=== PATIENT | female | born 1975 | race Caucasian/White ===

== ENCOUNTER 2017-12-09 09:37 | Emergency (ER) | payer BC, OTHER ==
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
[2017-12-09 10:04] VITALS: BP 132/97
--- NOTE | 2017-12-09 10:24 | UC ---
Respiratory Complaint HPI - HPI Summary HPI Summary: 42F presents with sinus congestion, worsening cough, and fever for past couple days. 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 She states that this started Wednesday and has gotten worst. She got her flu shot. She has been taking dayquil which has been helping. She denies any chest pain or SOB. She does not smoke. - History of Current Complaint Chief Complaint: UCGeneralIllness Stated Complaint: UPPER RESPIRATORY Time Seen by Provider: 12/09/17 10:15 Hx Last Menstrual Period: 2 months ago r/t pcos Pain Intensity: 0 - Allergies/Home Medications Allergies/Adverse Reactions: Allergies Allergy/AdvReac Type Severity Reaction Status Date / Time Codeine Allergy Severe shakey Verified 12/09/17 10:04 difficulty breathing Morphine Allergy Severe difficulty Verified 12/09/17 10:04 breathing, shaking, nausea, vomiting Propoxyphene Allergy Severe GI Verified 12/09/17 10:04 [From MarceloRobert] symptoms, difficulty breathing, shaking Home Medications: Home Medications Cyclobenzaprine TAB* [Flexeril 10 MG TAB*] 12/09/17 [History] Gabapentin CAP(*) [Neurontin 300 CAP(*)] 300 mg PO TID 12/09/17 [History Confirmed 12/09/17] Tramadol 50 MG # 6 TAB PREPAK 12/09/17 [History] PMH/Surg Hx/FS Hx/Imm Hx Endocrine History: Other Other Endocrine History: PCOS Respiratory History: Other Other Respiratory History: no asthma - Surgical History Surgical History: Yes Surgery Procedure, Year, and Place: gallbladder removed. - Family History Known Family History: Negative: Respiratory Disease - Social History Alcohol Use: Rare Substance Use Type: None Smoking Status (MU): Never Smoked Tobacco - Immunization History Most Recent Influenza Vaccination: Fall 2013 Most Recent Tetanus Shot: unknown Review of Systems Constitutional: Fever ENT: Nasal Discharge Respiratory: Cough Cardiovascular: Negative All Other Systems Reviewed And Are Negative: Yes Physical Exam Triage Information Reviewed: Yes Appearance: Well-Appearing Vital Signs: Initial Vital Signs Temp 98.1 F 12/09/17 09:59 Pulse 94 12/09/17 09:59 Resp 18 12/09/17 09:59 BP 132/97 12/09/17 09:59 Pulse Ox 100 12/09/17 09:59 Vital Signs Reviewed: Yes Eye Exam: Normal ENT: Positive: Pharynx normal, Nasal drainage, TMs normal Neck: Positive: Supple, Nontender, No Lymphadenopathy Respiratory: Positive: Lungs clear, Normal breath sounds, Other: - neg egophony Cardiovascular: Positive: RRR Abdomen Description: Positive: Nontender, Soft Bowel Sounds: Positive: Present Musculoskeletal Exam: Normal Neurological Exam: Normal Psychological Exam: Normal Skin Exam: Normal UC Diagnostic Evaluation - Laboratory O2 Sat by Pulse Oximetry: 100 Respiratory Course/Dx - Course Course Of Treatment: 42F presents with sinus congestion, worsening cough, and fever for past couple days. 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 She states that this started Wednesday and has gotten worst. She got her flu shot. She has been taking dayquil which has been helping. She denies any chest pain or SOB. on exam sinus congestion present. lungs CTA, neg egophony. flu neg. will treat with tessalon, prednisone, and inhaler. medication reviewed. advised patient to follow up with primary about blood pressure. patient understand and agrees with plan. - Differential Dx/Diagnosis Differential Diagnosis/HQI/PQRI: Bronchitis, Influenza, Lower Resp Infection Provider Diagnoses: upper respiratory infection, elevated blood pressure Discharge - Discharge Plan Condition: Good Disposition: HOME Prescriptions: Albuterol HFA INHALER* [Ventolin HFA Inhaler*] 1 puff INH Q4H PRN #1 mdi PRN Reason: Cough Benzonatate CAP* [Tessalon 100 MG CAP*] 100 mg PO TID #21 cap predniSONE TAB* [Deltasone TAB*] 40 mg PO DAILY #10 tab Patient Education Materials: Upper Respiratory Infection (ED) Referrals: Adarsh Salas MD [Primary Care Provider] - Additional Instructions: Use Tessalon three times a day for cough Use inhaler one puff every 4-6 hours for cough as needed Take steroid once a day for 5 days Use humidifier or place warm bowls of water around the room for cough Take Tylenol and ibuprofen for pain/fever every 6 hours Follow up with primary about elevated blood pressure at this visit Return to ED if develop any new or worsening symptoms
== END 2017-12-09 10:53 | disposition home or self-care (01) ==
LOC: UCCORT 09:37
DX: J06.9 Acute upper respiratory infection, unspecified (principal); R03.0 Elevated blood-pressure reading, without diagnosis of hypertension; Z88.5 Allergy status to narcotic agent; Z90.49 Acquired absence of other specified parts of digestive tract
CPT/HCPCS: 87502; 99212; G0463